=== PATIENT | female | born 1980 | race Caucasian/White ===

== ENCOUNTER 2016-04-17 23:16 | Emergency (ER) | payer OTHER ==
--- NOTE | 2016-04-18 18:50 | ED CLINICAL REPORT ---
Clinical Report - Physicians/Mid Levels [facility] [address] [place] [address] 04/17/2016 23:19 Patient: RADHA MANZO Time Seen: 00:27. Arrived- By private vehicle. Historian- patient. HISTORY OF PRESENT ILLNESS Chief Complaint: BACK PAIN. Onset was today Climbing iin fuel tank tonight, she twisted and felt sudden sharp R lower back pain and it is still present. It was abrupt in onset. It is described as being severe and in the area of the lower lumbar spine and right side of the lower lumbar spine and radiating to the right buttock. The quality is noted to be sharp. No bladder dysfunction, bowel dysfunction, sensory loss or motor loss. Additional history - R leg little tingly. Patient notes an injury. Mechanism of injury- she was turning. Occurred at work. Recent medical care: The patient was seen recently by a health care provider. 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 REVIEW OF SYSTEMS No fever, chills, difficulty breathing, chest pain or abdominal pain. No nausea, vomiting, diarrhea or difficulty with urination. PAST HISTORY PCP: Dr Ashwini TORRES ADDITIONAL SURGERIES: Appendectomy. Hysterectomy. Tonsillectomy. Csection x 4 Hosp: L sided numbness - migraine aura Illness: Poly Cystic Ovarian syndrome. Medications: Spironolactone Oral. ClonazePAM Oral. SOCIAL HISTORY Current every day smoker. ADDITIONAL NOTES The nursing notes have been reviewed. PHYSICAL EXAM Vital Signs: 04/18/2016 01:11 BP: 116/57. HR: 68. RR: 16. O2 saturation: 98%. 04/17/2016 23:29 BP: 111/78. HR: 80. RR: 16. O2 saturation: 99%. Temp: 98.2 F. Appearance: Alert. Patient in moderate distress. Neck: Normal inspection. Neck nontender. Abdomen: Normal inspection. Soft and nontender. Back: Soft tissue tenderness in the right mid and lower lumbar area. Muscle spasm present. Limited ROM in the back. No vertebral point tenderness or CVA tenderness. Skin: Normal skin color. Extremities: Extremities exhibit normal ROM. Extremities nontender. Neuro: No motor deficit. No sensory deficit. Straight leg raising: negative on the right and negative on the left. Reflex exam: right patellar 2+, left patellar 2+, right Achilles 0 and left Achilles 1+. PROGRESS AND PROCEDURES Course of Care: L and I form completed. [employer] form completed. She is not released for duty. Pt did not disclose her Oxycodone which [facility] revealed. She tells me that she was asked to provide her daily meds. She intermittently takes Oxycodone. This appears to be a genuine acute injury in the form of an acute lumbar strain but not likely a radiculopathy and not a neurosurgical emergency. Disposition: Discharged. Condition: stable. CLINICAL IMPRESSION Acute lumbar back pain associated with muscle strain. Clinical picture does not suggest lumbar radiculopathy. INSTRUCTIONS Do not work for four days. Prescription Medications: Ibuprofen 600 mg tablets: take 1 tablet orally every 8 hours for 5 days. Dispense fifteen (15). No refill. Robaxin 750 mg: Take 2 orally every 6 hours as needed for muscle spasm. Dispense thirty (30). No refills. Substitution is permissible. Oxycodone/APAP 5 mg/325 mg. Dispense fifteen (15). Follow-up: Follow up with your doctor in three. Reason for referral: re assess for work. Understanding of the discharge instructions verbalized by patient and family. (Electronically signed by Get Yang MD 04/18/2016 18:50)
--- NOTE | 2016-04-18 18:50 | ED DISCHARGE INSTRUCTIONS ---
Patient: RADHA MANZO General Instructions [facility] VisitID: [id number] [place] [address] 36y, F Registration Date/Time: 04/17/2016 Acute lumbar back pain associated with muscle strain. INSTRUCTIONS Do not work for four days. Prescription Medications: Ibuprofen 600 mg tablets: take 1 tablet orally every 8 hours for 5 days. Dispense fifteen (15). No refill. Robaxin 750 mg: Take 2 orally every 6 hours as needed for muscle spasm. Dispense thirty (30). No refills. Substitution is permissible. Oxycodone/APAP 5 mg/325 mg. Dispense fifteen (15). Follow-up: Follow up with your doctor in three. Reason for referral: re assess for work. Understanding of the discharge instructions verbalized by patient and family. ADDITIONAL INFORMATION Back Pain [Acute Or Chronic] Back pain is usually caused by an injury to the muscles or ligaments of the spine. Sometimes the disks that separate each bone in the spine may bulge and cause pain by pressing on a nearby nerve. Back pain may also appear after a sudden twisting/bending force (such as in a car accident), after a simple awkward movement, or lifting something heavy with poor body positioning. In either case, muscle spasm is often present and adds to the pain. Acute back pain usually gets better in one to two weeks. Back pain related to disk disease, arthritis in the spinal joints or spinal stenosis (narrowing of the spinal canal) can become chronic and last for months or years. Unless you had a physical injury (for example, a car accident or fall) X-rays are usually not ordered for the initial evaluation of back pain. If pain continues and does not respond to medical treatment, x-rays and other tests may be performed at a later time. Home Care: You may need to stay in bed the first few days. But, as soon as possible, begin sitting or walking to avoid problems with prolonged bed rest (muscle weakness, worsening back stiffness and pain, blood clots in the legs). When in bed, try to find a position of comfort. A firm mattress is best. Try lying flat on your back with pillows under your knees. You can also try lying on your side with your knees bent up towards your chest and a pillow between your knees. Avoid prolonged sitting. This puts more stress on the lower back than standing or walking. During the first two days after injury, apply an ICE PACK to the painful area for 20 minutes every 2-4 hours. This will reduce swelling and pain. HEAT (hot shower, hot bath or heating pad) works well for muscle spasm. You can start with ice, then switch to heat after two days. Some patients feel best alternating ice and heat treatments. Use the one method that feels the best to you. You may use acetaminophen (Tylenol) or ibuprofen (Motrin, Advil) to control pain, unless another pain medicine was prescribed. [NOTE: If you have chronic liver or kidney disease or ever had a stomach ulcer or GI bleeding, talk with your doctor before using these medicines.] Be aware of safe lifting methods and do not lift anything over 15 pounds until all the pain is gone. Follow Up with your doctor or this facility if your symptoms do not start to improve after one week. Physical therapy may be needed. [NOTE: If X-rays were taken, they will be reviewed by a radiologist. You will be notified of any new findings that may affect your care.] Get Prompt Medical Attention if any of the following occur: Pain becomes worse or spreads to your legs Weakness or numbness in one or both legs Loss of bowel or bladder control Numbness in the groin or genital area Ibuprofen Oral tablet What is this medicine? IBUPROFEN (eye BYOO proe fen) is a non-steroidal anti-inflammatory drug (NSAID). It is used for dental pain, fever, headaches or migraines, osteoarthritis, rheumatoid arthritis, or painful monthly periods. It can also relieve minor aches and pains caused by a cold, flu, or sore throat. How should I use this medicine? Take this medicine by mouth with a glass of water. Follow the directions on the prescription label. Take this medicine with food if your stomach gets upset. Try to not lie down for at least 10 minutes after you take the medicine. Take your medicine at regular intervals. Do not take your medicine more often than directed. A special MedGuide will be given to you by the pharmacist with each prescription and refill. Be sure to read this information carefully each time. Talk to your telecommunications administrator regarding the use of this medicine in children. Special care may be needed. What side effects may I notice from receiving this medicine? Side effects that you should report to your doctor or health nurse healthcare manager as soon as possible: allergic reactions like skin rash, itching or hives, swelling of the face, lips, or tongue black or bloody stools, blood in the urine or in vomit breathing problems changes in vision chest pain general ill feeling or flu-like symptoms nausea or vomiting redness, blistering, peeling or loosening of the skin, including inside the mouth slurred speech or weakness on one side of the body stomach pain unexplained weight gain or swelling unusually weak or tired yellowing of eyes or skin Side effects that usually do not require medical attention (report to your doctor or health nurse healthcare manager if they continue or are bothersome): constipation or diarrhea dizziness gas or heartburn stomach upset What may interact with this medicine? Do not take this medicine with any of the following medications: cidofovir ketorolac methotrexate pemetrexed This medicine may also interact with the following medications: alcohol aspirin diuretics lithium other drugs for inflammation like prednisone warfarin What if I miss a dose? If you miss a dose, take it as soon as you can. If it is almost time for your next dose, take only that dose. Do not take double or extra doses. Where should I keep my medicine? Keep out of the reach of children. Store at room temperature between 15 and 30 degrees C (59 and 86 degrees F). Keep container tightly closed. Throw away any unused medicine after the expiration date. What should I tell my health care provider before I take this medicine? They need to know if you have any of these conditions: asthma cigarette smoker drink more than 3 alcohol containing drinks a day heart disease or circulation problems such as heart failure or leg edema (fluid retention) high blood pressure kidney disease liver disease stomach bleeding or ulcers an unusual or allergic reaction to ibuprofen, aspirin, other NSAIDS, other medicines, foods, dyes, or preservatives or trying to get breast-feeding What should I watch for while using this medicine? Tell your doctor or healthcare professional if your symptoms do not start to get better or if they get worse. This medicine does not prevent heart attack or stroke. In fact, this medicine may increase the chance of a heart attack or stroke. The chance may increase with longer use of this medicine and in people who have heart disease. If you take aspirin to prevent heart attack or stroke, talk with your doctor or health nurse healthcare manager. Do not take other medicines that contain aspirin, ibuprofen, or naproxen with this medicine. Side effects such as stomach upset, nausea, or ulcers may be more likely to occur. Many medicines available without a prescription should not be taken with this medicine. This medicine can cause ulcers and bleeding in the stomach and intestines at any time during treatment. Ulcers and bleeding can happen without warning symptoms and can cause . To reduce your risk, do not smoke cigarettes or drink alcohol while you are taking this medicine. You may get drowsy or dizzy. Do not drive, use machinery, or do anything that needs mental alertness until you know how this medicine affects you. Do not stand or sit up quickly, especially if you are an older patient. This reduces the risk of dizzy or fainting spells. This medicine can cause you to bleed more easily. Try to avoid damage to your teeth and gums when you brush or floss your teeth. Oxycodone Hydrochloride, Acetaminophen Oral tablet What is this medicine? ACETAMINOPHEN; OXYCODONE (a set a AYDIN harjinder fen; ox i KOE done) is a pain reliever. It is used to treat mild to moderate pain. How should I use this medicine? Take this medicine by mouth with a full glass of water. Follow the directions on the prescription label. Take your medicine at regular intervals. Do not take your medicine more often than directed. Talk to your telecommunications administrator regarding the use of this medicine in children. Special care may be needed. Patients over 65 years old may have a stronger reaction and need a smaller dose. What side effects may I notice from receiving this medicine? Side effects that you should report to your doctor or health nurse healthcare manager as soon as possible: allergic reactions like skin rash, itching or hives, swelling of the face, lips, or tongue breathing difficulties, wheezing confusion light headedness or fainting spells severe stomach pain yellowing of the skin or the whites of the eyes Side effects that usually do not require medical attention (report to your doctor or health nurse healthcare manager if they continue or are bothersome): dizziness drowsiness nausea vomiting What may interact with this medicine? alcohol antihistamines barbiturates like amobarbital, butalbital, butabarbital, methohexital, pentobarbital, phenobarbital, thiopental, and secobarbital benztropine drugs for bladder problems like solifenacin, trospium, oxybutynin, tolterodine, hyoscyamine, and methscopolamine drugs for breathing problems like ipratropium and tiotropium drugs for certain stomach or intestine problems like propantheline, homatropine methylbromide, glycopyrrolate, atropine, belladonna, and dicyclomine general anesthetics like etomidate, ketamine, nitrous oxide, propofol, desflurane, enflurane, halothane, isoflurane, and sevoflurane medicines for depression, anxiety, or psychotic disturbances medicines for sleep muscle relaxants naltrexone narcotic medicines (opiates) for pain phenothiazines like perphenazine, thioridazine, chlorpromazine, mesoridazine, fluphenazine, prochlorperazine, promazine, and trifluoperazine scopolamine tramadol trihexyphenidyl What if I miss a dose? If you miss a dose, take it as soon as you can. If it is almost time for your next dose, take only that dose. Do not take double or extra doses. Where should I keep my medicine? Keep out of the reach of children. This medicine can be abused. Keep your medicine in a safe place to protect it from theft. Do not share this medicine with anyone. Selling or giving away this medicine is dangerous and against the law. Store at room temperature between 20 and 25 degrees C (68 and 77 degrees F). Keep container tightly closed. Protect from light. This medicine may cause accidental overdose and if it is taken by other adults, children, or pets. Flush any unused medicine down the toilet to reduce the chance of harm. Do not use the medicine after the expiration date. What should I tell my health care provider before I take this medicine? They need to know if you have any of these conditions: brain tumor Crohn's disease, inflammatory bowel disease, or ulcerative colitis drink more than 3 alcohol containing drinks per day drug abuse or addiction head injury heart or circulation problems kidney disease or problems going to the bathroom liver disease lung disease, asthma, or breathing problems an unusual or allergic reaction to acetaminophen, oxycodone, other opioid analgesics, other medicines, foods, dyes, or preservatives or trying to get breast-feeding What should I watch for while using this medicine? Tell your doctor or health nurse healthcare manager if your pain does not go away, if it gets worse, or if you have new or a different type of pain. You may develop tolerance to the medicine. Tolerance means that you will need a higher dose of the medication for pain relief. Tolerance is normal and is expected if you take this medicine for a long time. Do not suddenly stop taking your medicine because you may develop a severe reaction. Your body becomes used to the medicine. This does NOT mean you are addicted. Addiction is a behavior related to getting and using a drug for a non-medical reason. If you have pain, you have a medical reason to take pain medicine. Your doctor will tell you how much medicine to take. If your doctor wants you to stop the medicine, the dose will be slowly lowered over time to avoid any side effects. You may get drowsy or dizzy. Do not drive, use machinery, or do anything that needs mental alertness until you know how this medicine affects you. Do not stand or sit up quickly, especially if you are an older patient. This reduces the risk of dizzy or fainting spells. Alcohol may interfere with the effect of this medicine. Avoid alcoholic drinks. There are different types of narcotic medicines (opiates) for pain. If you take more than one type at the same time, you may have more side effects. Give your health care provider a list of all medicines you use. Your doctor will tell you how much medicine to take. Do not take more medicine than directed. Call emergency for help if you have problems breathing. The medicine will cause constipation. Try to have a bowel movement at least every 2 to 3 days. If you do not have a bowel movement for 3 days, call your doctor or health nurse healthcare manager. Do not take Tylenol (acetaminophen) or medicines that have acetaminophen with this medicine. Too much acetaminophen can be very dangerous. Many nonprescription medicines contain acetaminophen. Always read the labels carefully to avoid taking more acetaminophen. You have been given the following additional information: Back Pain (Acute Or Chronic) Ibuprofen Oral tablet Oxycodone Hydrochloride, Acetaminophen Oral tablet Do not work for four days. (Electronically signed by Get Yang MD 04/18/2016 18:50)
--- NOTE | 2016-04-18 18:50 | ED NURSING NOTES ---
Clinical Report - Nurses [facility] [address] [place] [address] 04/17/2016 23:19 Patient: RADHA MANZO TRIAGE Triage time 2325. Acuity: LEVEL 3. Chief Complaint: BACK PAIN. Alert. --23:32 Andria Suazo 23:29 04/17/16. BP: 111/78. HR: 80. RR: 16. O2 saturation: 99%. Temp: 98.2 F. Pain level now 10/08. --23:32 Andria Suazo. Weight: 63.5 kg. Height/Length: 64 inches. BMI: 24. --23:28 Andria Suazo. Medications ClonazePAM Oral. --23:30 Andria Suazo Spironolactone Oral. --23:30 Andria Suazo. Allergies No Known Drug Allergy. --01:12 Andria Suazo. History Arrived by private vehicle. Historian: patient. Accompanied by family. This started just prior to arrival. ( low back pain post twisting wrong at work). 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 SOCIAL HX: Current every day heavy tobacco smoker, start date 1998 (cigarette)- 1 pack per day. Occasional alcohol use. --23:32 Andria Suazo. ADDITIONAL SURGERIES: Appendectomy. Hysterectomy. Tonsillectomy. --23:31 Andria Suazo. Interventions ID band on patient. To treatment room. --23:32 Andria Suazo. PHYSICAL ASSESSMENT To room via wheelchair. GENERAL / NEURO / PSYCH: Alert. Oriented X 4. Appears in pain. RESPIRATORY: Respirations not labored. Chest nontender. Breath sounds within normal limits. CVS: Normal heart rate and rhythm. Capillary refill less than 2 seconds. GI / : Abdomen soft and nontender. Bowel sounds within normal limits. EXTREMITIES: Sensation intact in extremities. ROM of extremities within normal limits. BACK: Normal inspection of the neck and back. Limited ROM of the back. --23:34 Andria Suazo. NURSING PROGRESS NOTES 01:10 04/18/2016 Valium (Diazepam) PO 5 mg given. Allergies verified, confirmed 5 rights and sedative warning given to the patient. --01:10 Andria Suazo 01:10 04/18/2016 Percocet (Oxycodone-Acetaminophen) PO 5/325 mg Tablets 2 tab given. Allergies verified, confirmed 5 rights and sedative warning given to the patient. --01:10 Andria Suazo. DISPOSITION / DISCHARGE Departure time: 0110. Condition at departure: unchanged and stable. No learning barriers present. Discharge instructions provided and reviewed with the patient. Reviewed medication(s). Treatments reviewed. Patient verbalized understanding. Written instructions provided in Icelandic. The patient was discharged by the physician. She was discharged home and accompanied by spouse. She left the Emergency Department ambulatory and via private vehicle. Spouse driving. --01:11 Andria Suazo 01:11 04/18/16. BP: 116/57. HR: 68. RR: 16. O2 saturation: 98%. Pain level now 7/10. --01:11 Andria Suazo. Locked/Released at 04/18/2016 1:12 by Andria Suazo,
--- NOTE | 2016-04-18 18:50 | ED MED RECONCILIATION SUMMARY ---
Patient: RADHA MANZO Medication Reconciliation Report [facility] VisitID: [id number] [place] [address] 36y, F Registration Date/Time: 04/17/2016 Weight: 63.5 kg Height/Length: 64 in. BMI: 24.0 ALLERGIES: No Known Drug Allergy The patient's Home Medications are listed below: THE FOLLOWING MEDICATIONS NEED TO BE RECONCILED: ClonazePAM Oral Spironolactone Oral The source(s) of the original Home Medication information: Not obtained. The following Medications were given to the patient in the Emergency Department: Valium [PO] PO 5 mg, administered: 04/18/2016 1:10:00 AM Percocet [PO] PO 2 tab, administered: 04/18/2016 1:10:00 AM The following Medications were prescribed to the patient: Ibuprofen 600 mg tablets: take 1 tablet orally every 8 hours for 5 days. Dispense fifteen (15). No refill. -- Get Yang MD Robaxin 750 mg: Take 2 orally every 6 hours as needed for muscle spasm. Dispense thirty (30). No refills. Substitution is permissible. -- Get Yang MD Oxycodone/APAP 5 mg/325 mg. Dispense fifteen (15). -- Get Yang MD
--- NOTE | 2016-04-18 18:50 | ED MAR SUMMARY ---
..... Medication Administration Record [facility] [address] [place] [address] Patient: RADHA MANZO Visit ID: [id number] 36y, F Weight: 63.5 kg Height/Length: 64 in BMI: 24 ALLERGIES: No Known Drug Allergy Given 01:04/18/2016 Andria Suazo, Medication Administered: VALIUM [PO] (DIAZEPAM), Dose: 5 mg PO. Medication Ordered: Valium PO 5 mg (NOW). Given 01:04/18/2016 Andria Suazo, Medication Administered: PERCOCET [PO] (OXYCODONE-ACETAMINOPHEN), Dose: 2 tab 5/325 mg Tablets PO. Medication Ordered: Percocet PO 5/325 mg 2 tablets (NOW).
--- NOTE | 2016-04-18 18:50 | ED MED RECONCILIATION SUMMARY ---
Patient: RADHA MANZO Medication Reconciliation Report [facility] VisitID: [id number] [place] [address] 36y, F Registration Date/Time: 04/17/2016 Weight: 63.5 kg Height/Length: 64 in. BMI: 24.0 ALLERGIES: No Known Drug Allergy The patient's Home Medications are listed below: THE FOLLOWING MEDICATIONS NEED TO BE RECONCILED: ClonazePAM Oral Spironolactone Oral The source(s) of the original Home Medication information: Not obtained. The following Medications were given to the patient in the Emergency Department: Valium [PO] PO 5 mg, administered: 04/18/2016 1:10:00 AM Percocet [PO] PO 2 tab, administered: 04/18/2016 1:10:00 AM The following Medications were prescribed to the patient: Ibuprofen 600 mg tablets: take 1 tablet orally every 8 hours for 5 days. Dispense fifteen (15). No refill. -- Get Yang MD Robaxin 750 mg: Take 2 orally every 6 hours as needed for muscle spasm. Dispense thirty (30). No refills. Substitution is permissible. -- Get Yang MD Oxycodone/APAP 5 mg/325 mg. Dispense fifteen (15). -- Get Yang MD
--- NOTE | 2016-04-18 18:50 | ED ORDER SUMMARY ---
..... Patient: RADHA MANZO OrderSheet [facility] VisitID: [id number] [address] [place] [address] 36y, F Registration Date/Time: 04/17/2016 ORDER SHEET Weight: 63.5 kg Allergies: No Known Drug Allergy GENERAL ORDERS: MEDICATION ORDERS: Valium PO 5 mg (NOW) (00:48 04/18/2016 Krys GODINEZ) ([facility] Percocet PO 5/325 mg 2 tablets (NOW) (00:48 04/18/2016 Krys GODINEZ) [facility] IV FLUIDS: ORDER SHEET NOTES: [Electronically signed by Andria Suazo (01:12 04/18/2016)] [Electronically signed by Get Yang MD (18:50 04/18/2016)] [Electronically locked/signed by Andria Suazo (01:12 04/18/2016)]
--- NOTE | 2016-04-18 18:50 | ED CLINICAL REPORT ---
Clinical Report - Physicians/Mid Levels [facility] [address] [place] [address] 04/17/2016 23:19 Patient: RADHA MANZO Time Seen: 00:27. Arrived- By private vehicle. Historian- patient. HISTORY OF PRESENT ILLNESS Chief Complaint: BACK PAIN. Onset was today Climbing iin fuel tank tonight, she twisted and felt sudden sharp R lower back pain and it is still present. It was abrupt in onset. It is described as being severe and in the area of the lower lumbar spine and right side of the lower lumbar spine and radiating to the right buttock. The quality is noted to be sharp. No bladder dysfunction, bowel dysfunction, sensory loss or motor loss. Additional history - R leg little tingly. Patient notes an injury. Mechanism of injury- she was turning. Occurred at work. Recent medical care: The patient was seen recently by a health care provider. 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 REVIEW OF SYSTEMS No fever, chills, difficulty breathing, chest pain or abdominal pain. No nausea, vomiting, diarrhea or difficulty with urination. PAST HISTORY PCP: Dr Ashwini TORRES ADDITIONAL SURGERIES: Appendectomy. Hysterectomy. Tonsillectomy. Csection x 4 Hosp: L sided numbness - migraine aura Illness: Poly Cystic Ovarian syndrome. Medications: Spironolactone Oral. ClonazePAM Oral. SOCIAL HISTORY Current every day smoker. ADDITIONAL NOTES The nursing notes have been reviewed. PHYSICAL EXAM Vital Signs: 04/18/2016 01:11 BP: 116/57. HR: 68. RR: 16. O2 saturation: 98%. 04/17/2016 23:29 BP: 111/78. HR: 80. RR: 16. O2 saturation: 99%. Temp: 98.2 F. Appearance: Alert. Patient in moderate distress. Neck: Normal inspection. Neck nontender. Abdomen: Normal inspection. Soft and nontender. Back: Soft tissue tenderness in the right mid and lower lumbar area. Muscle spasm present. Limited ROM in the back. No vertebral point tenderness or CVA tenderness. Skin: Normal skin color. Extremities: Extremities exhibit normal ROM. Extremities nontender. Neuro: No motor deficit. No sensory deficit. Straight leg raising: negative on the right and negative on the left. Reflex exam: right patellar 2+, left patellar 2+, right Achilles 0 and left Achilles 1+. PROGRESS AND PROCEDURES Course of Care: L and I form completed. [employer] form completed. She is not released for duty. Pt did not disclose her Oxycodone which [facility] revealed. She tells me that she was asked to provide her daily meds. She intermittently takes Oxycodone. This appears to be a genuine acute injury in the form of an acute lumbar strain but not likely a radiculopathy and not a neurosurgical emergency. Disposition: Discharged. Condition: stable. CLINICAL IMPRESSION Acute lumbar back pain associated with muscle strain. Clinical picture does not suggest lumbar radiculopathy. INSTRUCTIONS Do not work for four days. Prescription Medications: Ibuprofen 600 mg tablets: take 1 tablet orally every 8 hours for 5 days. Dispense fifteen (15). No refill. Robaxin 750 mg: Take 2 orally every 6 hours as needed for muscle spasm. Dispense thirty (30). No refills. Substitution is permissible. Oxycodone/APAP 5 mg/325 mg. Dispense fifteen (15). Follow-up: Follow up with your doctor in three. Reason for referral: re assess for work. Understanding of the discharge instructions verbalized by patient and family. (Electronically signed by Get Yang MD 04/18/2016 18:50)
--- NOTE | 2016-04-18 18:50 | ED NURSING NOTES ---
Clinical Report - Nurses [facility] [address] [place] [address] 04/17/2016 23:19 Patient: RADHA MANZO TRIAGE Triage time 2325. Acuity: LEVEL 3. Chief Complaint: BACK PAIN. Alert. --23:32 Andria Suazo 23:29 04/17/16. BP: 111/78. HR: 80. RR: 16. O2 saturation: 99%. Temp: 98.2 F. Pain level now 10/08. --23:32 Andria Suazo. Weight: 63.5 kg. Height/Length: 64 inches. BMI: 24. --23:28 Andria Suazo. Medications ClonazePAM Oral. --23:30 Andria Suazo Spironolactone Oral. --23:30 Andria Suazo. Allergies No Known Drug Allergy. --01:12 Andria Suazo. History Arrived by private vehicle. Historian: patient. Accompanied by family. This started just prior to arrival. ( low back pain post twisting wrong at work). 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 SOCIAL HX: Current every day heavy tobacco smoker, start date 1998 (cigarette)- 1 pack per day. Occasional alcohol use. --23:32 Andria Suazo. ADDITIONAL SURGERIES: Appendectomy. Hysterectomy. Tonsillectomy. --23:31 Andria Suazo. Interventions ID band on patient. To treatment room. --23:32 Andria Suazo. PHYSICAL ASSESSMENT To room via wheelchair. GENERAL / NEURO / PSYCH: Alert. Oriented X 4. Appears in pain. RESPIRATORY: Respirations not labored. Chest nontender. Breath sounds within normal limits. CVS: Normal heart rate and rhythm. Capillary refill less than 2 seconds. GI / : Abdomen soft and nontender. Bowel sounds within normal limits. EXTREMITIES: Sensation intact in extremities. ROM of extremities within normal limits. BACK: Normal inspection of the neck and back. Limited ROM of the back. --23:34 Andria Suazo. NURSING PROGRESS NOTES 01:10 04/18/2016 Valium (Diazepam) PO 5 mg given. Allergies verified, confirmed 5 rights and sedative warning given to the patient. --01:10 Andria Suazo 01:10 04/18/2016 Percocet (Oxycodone-Acetaminophen) PO 5/325 mg Tablets 2 tab given. Allergies verified, confirmed 5 rights and sedative warning given to the patient. --01:10 Andria Suazo. DISPOSITION / DISCHARGE Departure time: 0110. Condition at departure: unchanged and stable. No learning barriers present. Discharge instructions provided and reviewed with the patient. Reviewed medication(s). Treatments reviewed. Patient verbalized understanding. Written instructions provided in German. The patient was discharged by the physician. She was discharged home and accompanied by spouse. She left the Emergency Department ambulatory and via private vehicle. Spouse driving. --01:11 Andria Suazo 01:11 04/18/16. BP: 116/57. HR: 68. RR: 16. O2 saturation: 98%. Pain level now 7/10. --01:11 Andria Suazo. Locked/Released at 04/18/2016 1:12 by Andria Suazo,
--- NOTE | 2016-04-18 18:50 | ED MAR SUMMARY ---
..... Medication Administration Record [facility] [address] [place] [address] Patient: RADHA MANZO Visit ID: [id number] 36y, F Weight: 63.5 kg Height/Length: 64 in BMI: 24 ALLERGIES: No Known Drug Allergy Given 01:04/18/2016 Andria Suazo, Medication Administered: VALIUM [PO] (DIAZEPAM), Dose: 5 mg PO. Medication Ordered: Valium PO 5 mg (NOW). Given 01:04/18/2016 Andria Suazo, Medication Administered: PERCOCET [PO] (OXYCODONE-ACETAMINOPHEN), Dose: 2 tab 5/325 mg Tablets PO. Medication Ordered: Percocet PO 5/325 mg 2 tablets (NOW).
--- NOTE | 2016-04-18 18:50 | ED ORDER SUMMARY ---
..... Patient: RADHA MANZO OrderSheet [facility] VisitID: [id number] [address] [place] [address] 36y, F Registration Date/Time: 04/17/2016 ORDER SHEET Weight: 63.5 kg Allergies: No Known Drug Allergy GENERAL ORDERS: MEDICATION ORDERS: Valium PO 5 mg (NOW) (00:48 04/18/2016 Krys GODINEZ) [facility] Percocet PO 5/325 mg 2 tablets (NOW) (00:48 04/18/2016 Krys GODINEZ) ([facility] IV FLUIDS: ORDER SHEET NOTES: [Electronically signed by Andira Suazo (01:12 04/18/2016)] [Electronically signed by Get Yang MD (18:50 04/18/2016)] [Electronically locked/signed by Andria Suazo (01:12 04/18/2016)]
== END 2016-04-18 01:10 | disposition home or self-care (01) ==
LOC: ED SRH 23:16
DX: S39.012A Strain of muscle, fascia and tendon of lower back, initial encounter (principal); X58.XXXA Exposure to other specified factors, initial encounter; Y93.9 Activity, unspecified; Y92.9 Unspecified place or not applicable; Y99.9 Unspecified external cause status; F17.200 Nicotine dependence, unspecified, uncomplicated